=== PATIENT | male | born 1965 | race African-American/Black ===

== ENCOUNTER 2017-11-13 19:07 | Emergency (ER) | payer OTHER ==
[~2017-11-13] VITALS: Ht 182.9 cm; Wt 88.5 kg
[2017-11-13] MEDS ORDERED: TRAMADOL 50 MG50 MG (19:18)
[2017-11-13] MEDS ORDERED: IBUPROFEN 800800 MG PO (20:47)
[2017-11-13 20:52] VITALS: BP 142/78
== END 2017-11-13 20:53 | disposition home or self-care (01) ==
LOC: M.ERS 19:07
DX: M75.102 Unspecified rotator cuff tear or rupture of left shoulder, not specified as traumatic (principal)